=== PATIENT | male | born 1985 | race Caucasian/White ===

== ENCOUNTER 2018-11-27 23:51 | Emergency (ER) | payer SELFPAY ==
[~2018-11-27] VITALS: Ht 180.3 cm; Wt 94.3 kg
[2018-11-28 01:06] LABS: BASOPHIL % 0.5 % (0-2); PLATELET COUNT 275 x10^3mcL (130-400)
[2018-11-28 01:24] LABS: CALCIUM 9.3 mg/dL (8.5-10.1); CARBON DIOXIDE 29.9 mmol/L (21-32); CHLORIDE SERUM 104 mmol/L (98-107); CREATININE SERUM 0.9 mg/dL (0.7-1.3); GFR1 > 60 mL/min; GLUCOSE SERUM 95 mg/dL (74-106); POTASSIUM SERUM 4.2 mmol/L (3.5-5.1); SODIUM SERUM 143 mmol/L (136-145)
[2018-11-28 01:29] LABS: ALBUMIN 3.6 g/dL (3.4-5.0); ALKALINE PHOSPHATASE 79 U/L (46-116); ALT/SGPT 33 U/L (16-63); AST/SGOT 13 U/L (15-37); BILIRUBIN TOTAL 0.2 mg/dL (0.20-1.00); LIPASE 211 IU/L (73-393); TOTAL PROTEIN, SERUM 7.1 g/dL (6.4-8.2)
[2018-11-28 02:33] VITALS: BP 113/57
== END 2018-11-28 02:33 | disposition home or self-care (01) ==
LOC: ED 23:51
PROVIDERS: Emergency Medicine
DX: K80.20 Calculus of gallbladder without cholecystitis without obstruction (principal)
CPT/HCPCS: J1885; J2405; J7030; Q0092

== ENCOUNTER 2019-07-02 22:33 | Emergency (ER) | payer MEDICAID ==
[~2019-07-02] VITALS: Ht 167.6 cm; Wt 93.9 kg
[2019-07-02 22:36] VITALS: BP 116/82; Ht 167.6 cm; Wt 93.9 kg
== END 2019-07-03 02:14 | disposition left against medical advice (07) ==
LOC: ED 22:33
DX: Z53.21 Procedure and treatment not carried out due to patient leaving prior to being seen by health care provider (principal)